=== PATIENT | female | born 1980 | race Caucasian/White ===

== ENCOUNTER → 2022-10-14 | Outpatient (CLI) | payer OTHER, SELFPAY ==
[2022-10-14 17:42] LABS: Hematocrit 31.4 % (37-47); Hemoglobin 9.7 g/dL (12.0-15.0); Mean Corp Hgb Conc 30.9 g/dL (32-36); Mean Corpuscular Hgb 26.2 pg (27.0-32.0); Mean Corpuscular Volume 84.9 fL (81-99); Mean Platelet Vol. 8.6 fl (6.2-12.0); Platelet Count 505 K/mm3 (150-450); RBC Distribution Width CV 15.1 % (11.6-14.6); White Blood Count 8.3 K/mm3 (4.4-11.0)
[2022-10-14 18:04] LABS: Erythrocyte Sedimentation Rate 35 mm/hr (0-30)
[2022-10-16 12:08] LABS: QNTFERON TB Mitogen Value > 10.00 IU/mL (.); QNTFERON TB Nil Value 0.04 IU/mL (.); QNTFERON TB1+ Ag Value 0.04 IU/mL (.); QNTFERON TB2+ Ag Value 0.03 IU/mL (.); QNTIFERON TB Positive Criteria Negative (Negative)
== END | disposition home or self-care (01) ==
LOC: MTLAB 15:03
PROVIDERS: PCP Obstetrics & Gynecology; Referring Provider Internal Medicine Gastroenterology; Visit Provider Internal Medicine Gastroenterology
DX: K50.90 Crohn's disease, unspecified, without complications (principal)
CPT/HCPCS: 36415; 85027; 85652; 86140; 86480

== ENCOUNTER → 2022-12-22 | Outpatient (CLI) | payer OTHER, SELFPAY ==
[2022-12-22 17:34] LABS: Hematocrit 30.3 % (37-47); Hemoglobin 8.8 g/dL (12.0-15.0); Mean Corpuscular Hgb 23.8 pg (27.0-32.0); Mean Corpuscular Volume 81.9 fL (81-99); Mean Platelet Vol. 9.6 fl (6.2-12.0); Platelet Count 435 K/mm3 (150-450); RBC Distribution Width CV 15.9 % (11.6-14.6); RBC Distribution Width SD 47.4 fl (35.1-43.9); White Blood Count 7.6 K/mm3 (4.4-11.0)
[2022-12-22 18:38] LABS: AST(SGOT) 22 U/L (15-37); Alanine Aminotransfer ALT/SGPT 20 U/L (13-56); Albumin, Serum 3.7 g/dL (3.2-5.0); Alkaline Phosphatase 33 U/L (45-117); Bilirubin, Direct 0.07 mg/dL (0.00-0.30); CRP < 2.90 mg/L (0.0-3.0); Globulin 3.8 g/dL (2.2-4.2); Protein, Total 7.5 g/dL (6.4-8.2)
== END | disposition home or self-care (01) ==
PROVIDERS: PCP Physician Assistant; Referring Provider Internal Medicine Gastroenterology; Visit Provider Internal Medicine Gastroenterology
DX: K50.90 Crohn's disease, unspecified, without complications (principal)
CPT/HCPCS: 36415; 80076; 85027; 86140